=== PATIENT | male | born 1945 | race Caucasian/White ===

== ENCOUNTER 2018-07-30 09:59 | Observation (INO) | payer MEDICARE, SELFPAY ==
[2018-07-30] VITALS (9 sets, daily range): BP systolic 128–165; BP diastolic 67–100; PULSE 81–90; RESP 14–20; TEMP 36.7–37.6; O2SAT 92–97; BMI 28.2
--- NOTE | 2018-07-30 10:12 | CT_ITS ---
STUDY: CT ABDOMEN AND PELVIS WITH CONTRAST REASON FOR EXAM: Male, 72 years old. Bilateral back pain with history of metastatic lung cancer involving the bones RADIATION DOSAGE (If Supplied By Facility): CTDIvol = ( 15.21 ) mGy, DLP = ( 1265.13 ) mGycm TECHNIQUE: Transaxial images were obtained from the dome of the diaphragm to the symphysis pubis with oral contrast. 100 IV/Oral Isovue 300 was administered. Sagittal and coronal images were reconstructed. Individualized dose optimization techniques were used for this CT. COMPARISON: None. FINDINGS: Masslike consolidation in the right lower lobe with numerous noncalcified nodules throughout the visualized lungs. Small volume right pleural effusion. The visualized portions of the heart are within normal limits. There are multiple hypodense lesions throughout the liver with the largest measuring up to 3.4 cm and the right hepatic lobe on image 29. No intrahepatic bile duct dilation. Gallbladder is unremarkable. Normal spleen. Normal pancreas. Hypodense mass of the right adrenal gland measures 3 cm, worrisome for metastatic deposit with a smaller but also worrisome nodule of the left adrenal gland 1.4 cm. Normal right kidney. Normal left kidney. Normal visualized stomach. Normal small intestine. There are multiple colonic diverticula consistent with diverticulosis. The appendix is visualized and appears normal. There is diffuse atherosclerotic calcification of the abdominal aorta, without a demonstrated aneurysm. Normal inferior vena cava. Normal retroperitoneum. Normal urinary bladder. There is a left-sided inguinal hernia containing adipose tissue. There are degenerative changes of the right more than left hip. There is an ill-defined lytic lesion of the anterior right femoral head/neck on axial image 111, cyst or metastatic deposit. There are degenerative changes throughout the thoracolumbar spine. Expansile lytic lesion of the posterior right 11th rib is evident on image 40. No lumbar spine compression fracture seen. There is a lytic lesion involving T12 with indistinct posterior vertebral body cortical margin on sagittal image 83. CT/Abdomen/Pelvis WITH Contrast IMPRESSION: 1. Right lung base consolidative mass with multiple pulmonary nodules, multiple hepatic masses, bilateral adrenal gland nodules, right femoral head/neck lytic lesion, right posterior 11th rib lytic lesion, T12 lytic lesion (no compression deformity seen). Findings compatible with metastatic lung cancer with metastasis. The T12 lytic lesion would better be evaluated with MRI (with IV contrast) to evaluate for extent into the canal/neural compromise). Electronically Signed: Levy Llanos MD at 12:07 EDT , Service support ,
[2018-07-30 10:27] LABS: Absolute Lymphocyte Count 1.04 X10^3/ul (0.83-4.51); Basophil# 0.07 X10^3/uL; Basophil% 0.7 % (0-1); Eosinophil# 0.09 X10^3/uL; Eosinophils% 0.9 % (0-5); Hematocrit 45.1 % (40-54); Hemoglobin 14.9 g/dl (13.0-16.5); Lymphocyte # 1.04 X10^3/ul (4.0); Lymphocyte % 10.3 % (19-41); Mean Corpuscular Hgb 28.6 pg (27.0-32.0); Mean Corpuscular Volume 86.6 fL (80-94); Mean Platelet Vol. 10.4 fl (6.2-12.0); Monocyte# 0.88 X10^3/uL; Monocyte% 8.7 % (0-10); Neutrophil # 7.97 X10^3/uL (2.7-7.7); Neutrophil % 79.1 % (47-70); POSITIVE COUNT NO; POSITIVE DIFFERENTIAL NO; POSITIVE MORPHOLOGY NO; Platelet Count 282 K/mm3 (150-450); RBC Distribution Width CV 14.1 % (11.6-14.6); RBC Distribution Width SD 44.8 fl (35.1-43.9); Red Blood Count 5.21 M/mm3 (4.6-6.2); White Blood Count 10.1 K/mm3 (4.4-11.0)
[2018-07-30 10:57] LABS: AST(SGOT) 30 U/L (15-37); Alanine Aminotransfer ALT/SGPT 19 U/L (16-61); Albumin, Serum 3.8 g/dL (3.2-5.0); Alkaline Phosphatase 152 U/L (45-117); Anion Gap 10 (5-15); BUN 14 mg/dL (7-18); BUN/Creat Ratio 14.6 RATIO (10-20); Bilirubin, Direct 0.18 mg/dL (0.00-0.30); Calcium,Total 9.1 mg/dL (8.5-10.1); Chloride 106 mmol/L (98-107); Creatinine, Serum 0.96 mg/dL (0.70-1.30); EST Glomerular Filtration Rate 82 mL/min (>60); Est Glom Filt Rate - Afr Amer 99 mL/min (>60); Estimated Creatinine Clearance 67.51 ml/min; Glucose 100 mg/dL (74-106); Potassium 3.8 mmol/L (3.5-5.1); Protein, Total 7.8 g/dL (6.4-8.2); Sodium Level 143 mmol/L (136-145)
[2018-07-30] MEDS: Ondansetron 4 MG/2 ML Vial IV ×2 (11:09→12:59)
[2018-07-30] MEDS: HYDROmorphone 1 MG/ML Syringe 0.5 MG IV (11:09)
[2018-07-30] MEDS: 0.9% Normal Saline 1,000 ML 15 ML IV (11:09)
[2018-07-30] MEDS: Morphine 4 MG/ML Syringe IV ×3 (12:58→23:29)
--- NOTE | 2018-07-30 13:15 | ED.VISSUMM ---
- ER Visit Summary Date of Service: 07/30/18 Chief Complaint: Abdominal pain, back pain History of Present Illness: The patient is a 72 M with history of non-small cell lung cancer with mets. He is currently in hospice care. He had increased back and left lower quadrant abdominal pain over the past 2 days. He was seen at the hospice facility this morning. Abdomen was firm with tenderness in the left lower quadrant. There are concern for diverticulitis. His temperature was reportedly 101. He revoked his hospice privileges for today to coming to be seen for this. He states his last bowel movement was yesterday. He states if anything he is constipated. Physical Examination: Vital signs significant for blood pressure of 164/97, otherwise unremarkable. Patient sitting upright in bed no acute distress. He is nontoxic-appearing. Heart is regular rate and rhythm. Lung sounds are clear. Abdomen is soft with mild lower abdominal tenderness. No guarding or rebound. Hypoactive bowel sounds are present. Test Results: CBC chemistry studies normal. LFTs unremarkable. CT abdomen pelvis with contrast reveals right lung base mass with multiple hepatic masses. He has multiple lytic bony lesions including a T12 lytic lesion. There is evidence of colonic diverticulosis without diverticulitis. Emergency Department Course and Treatment: Patient received Dilaudid and Zofran here followed by a dose of morphine. At this time his pain is not well controlled. I suspect he may be having left lower quadrant abdominal pain as radicular symptoms from his T12 lesion. I spoke with the hospice physician and because he revoked his privileges he cannot go back to the inpatient center for 24 hours. I spoke with the hospitalist to admit for pain control. Treatment Plan: [] Disposition: Admit Impression: 1. Metastatic lung cancer 2. Intractable pain This note was generated with Carmine dictation software. It may contain incorrect words, spelling, and punctuation that were not noted in review of the chart prior to signing ED Disposition - Plan for ED Patient: Disposition: Acute Care Hospital [facility]
--- NOTE | 2018-07-30 14:15 | HP.PCM_ITS ---
Problem List (1) Hypothyroidism Status: Chronic (2) Metastatic lung cancer (metastasis from lung to other site) Status: Chronic History of Present Illness Date of Admission: 07/30/18 Chief Complaint: Intractable back pain. The patient is a 72 year old M who presents to the Emergency Room due to intractable back pain. He reports he had a coughing fit yesterday morning and had sudden onset severe pain across to his lower/mid back which wraps around to his left side and stomach. He is currently under hospice services and was transported to the inpatient unit for better pain control last night. He reports his pain was still not well controlled and hospice physician recommended evaluation for diverticulitis, abscess or other causes of increased pain. Patient reports he was diagnosed with metastatic lung cancer September 2017, he has not undergone any treatment for this. His other past medical history includes hypothyroidism and peripheral neuropathy. He currently rates his pain 6 out of 10. He reports morphine has been more effective than Dilaudid which she was getting prior. Past Medical History Past Medical History (Chronic Problems): Chronic Problems Hypothyroidism (Chronic) Metastatic lung cancer (metastasis from lung to other site) (Chronic) Allergies Penicillins Allergy (Verified 07/30/18 10:00) Unknown Sulfa (Sulfonamide Antibiotics) Allergy (Verified 07/30/18 10:00) Unknown Home Medications: Ambulatory Orders Medication Instructions Recorded Duloxetine HCl 60 mg PO DAILY 07/30/18 Levothyroxine [Synthroid] 1.5 tab PO MOWEFR 07/30/18 Levothyroxine [Synthroid] 125 mcg PO SUTUTHSA 07/30/18 Lorazepam [Ativan] 2 mg PO Q4H PRN 07/30/18 Propranolol HCl 10 mg PO TID PRN 07/30/18 Saw [place] Fruit [Saw [place]] 450 mg PO DAILY 07/30/18 Senna/Docusate Sodium [Senokot-S, 1 tablet PO BID 07/30/18 Leighann-Colace] Surgical History: no surgical history Psychiatric History: No pertinent psych hx Lives: Alone Smoking Status: Never smoker Alcohol: None Drugs: None - *Family History Maternal History Items: Heart Disease Paternal History Items: Heart Disease Review of Systems Constitutional: Denies: Chills, Fever, Weight Change HEENT: Denies: Head Aches, Sinus Congestion, Sinus Drainage Cardiovascular: Denies: Chest Pain, Palpitations Respiratory: Denies: Cough, Shortness of breath at rest, Sputum production Gastrointestinal: Denies: Abdominal Pain, Nausea, Vomiting Genitourinary: Denies: Dysuria Musculoskeletal: Reports: Back Pain Skin: Denies: Rash, Wounds Neurological: Denies: Numbness, Tingling, Focal weakness Psychiatric: Denies: Anxiety, Depression, Homicidal Ideations, Suicidal Ideations Hematologic/ Lymphatic: Denies: Easy Bruising, Easy Bleeding VTE Information - Inpt Only VTE Present on Admission: No VTE Mechan Device Prophylaxis: None VTE Pharm Prophylaxis ordered?: No Reason prophylaxis not ordered:: Hospice Care - Physical Exam General: Alert, Oriented x3, Cooperative HEENT: Atraumatic, PERRLA, EOMI, Normocephalic Neck: Supple, No JVD, Negative Carotid Bruits Lungs: Clear to auscultation, Normal air movement Cardiovascular: Regular rate, Regular Rhythm, Normal S1, Normal S2, No murmurs Abdomen: Bowel Sounds Present, Soft, Non Tender, Non-Distended Extremities: No clubbing, No cyanosis, No edema, Capillary Refill Less than 3 Seconds Skin: No rashes, No breakdown Musculoskeletal: No Tenderness to Palpation of Joints or Extremities Neurological: Cranial nerves II-XII grossly intact, Neuro grossly intact Psych/Mental Status: Normal Affect, Appropriate Vital Signs Temp Pulse Resp BP Pulse Ox 98.2 F 86 16 128/67 H 97 07/30/18 10:01 07/30/18 12:27 07/30/18 14:04 07/30/18 12:27 07/30/18 12:27 Oxygen Delivery Method Room Air Weight: 191 lb 2.252 oz Body Mass Index (BMI) 28.2 Laboratory Tests Past 24 Hrs 07/30/18 07/30/18 10:10 10:10 WBC 10.1 RBC 5.21 Hgb 14.9 Hct 45.1 MCV 86.6 MCH 28.6 MCHC 33.0 RDW 14.1 RDW Differential 44.8 H Plt Count 282 MPV 10.4 Immature Gran % (Auto) 0.300 Neut % (Auto) 79.1 H Lymph % (Auto) 10.3 L [place] % (Auto) 8.7 Eos % (Auto) 0.9 Baso % (Auto) 0.7 Absolute Neuts (auto) 8.0 H Absolute Lymphs (auto) 1.04 Total Counted Not Reportable Sodium 143 Potassium 3.8 Chloride 106 Carbon Dioxide 27.0 Anion Gap 10 BUN 14 Creatinine 0.96 Estim Creat Clear Calc 67.51 Est GFR (MDRD) Af Amer 99 Est GFR (MDRD) Non-Af 82 BUN/Creatinine Ratio 14.6 Glucose 100 Calcium 9.1 Total Bilirubin 0.80 Direct Bilirubin 0.18 AST 30 ALT 19 Alkaline Phosphatase 152 H Total Protein 7.8 Albumin 3.8 Globulin 4.0 Assessment/Plan 1. Intractable back pain secondary to metastatic lung cancer with metastasis to bone- CT of abdomen and pelvis on admission shows right lung base consolidative mass with multiple pulmonary nodules, multiple hepatic masses, bilateral adrenal gland nodules, right femoral head/neck lytic lesion, right posterior 11th rib lytic lesion, T12 lytic lesion. Findings compatible with metastatic lung cancer with metastasis. Initiate ms contin 15mg BID. PRN IV morphine for breakthrough pain. Initiate bowel regimen. 2. Peripheral neuropathy-continue Cymbalta regimen. 3. Hypothyroidism-continue home Synthroid regimen. DVT prophylaxis-defer given hospice status. Discharge planning: plan for DC back to inpatient hospice unit when pain better controlled. This patient was seen by JOBY Moran under the supervision of Dr. Richter.
[2018-07-30] MEDS: LORazepam 1 MG Tablet PO (16:45)
[2018-07-30] MEDS: Polyethylene Glycol 3350 17 GM PACKET PO (16:45)
[2018-07-30] MEDS: morphine SR 15 MG Tablet PO ×2 (16:45→23:39)
[2018-07-30 17:23] LABS: Bacteria 0 SEEN /hpf (None Seen); Mucous, Urine 0 SEEN /hpf (<or=2+); Squamous Epithelial Cells - UA 0 SEEN /hpf (0-5); White Blood Cells 0 SEEN /hpf (0-5)
[2018-07-30 17:27] LABS: Color, Urine Yellow (Yellow); Glucose, Dipstick Normal (Normal); Ketone-Dipstick 15 mg/dl (Negative); Leukocyte Esterase-Dipstick Negative /ul (Negative); Nitrite-Dipstick Negative (Negative); Occult Blood-Urine 10 /ul (Negative); Protein-Dipstick 15 mg/dl (Negative); Urine Bilirubin Dipstick Negative (Negative); Urine Clarity Clear (Clear); Urine Urobilinogen Normal (Normal)
[2018-07-30 17:49] LABS: Red Blood Cells-Urine 0-5 SEEN /hpf (0-5)
[2018-07-30] MEDS: 0.9% NaCl Peripheral Flush Adult/Peds IV ×2 (19:45→23:31)
--- NOTE | 2018-07-30 19:50 | NURSING ---
upon rounding in pt's room pt frustrated and angry about not receiving pain meds timely and asking to speak with a phosphatic fertilizer supervisor. notified APPRENTICESHIP TRAINING REPRESENTATIVE JOSE ROBERTO. medicated pt for pain.
[2018-07-30] MEDS: Senna/Docusate Sodium 1 Tablet 2 TABLET PO (21:57)
[2018-07-30] MEDS: DULoxetine Hcl 60 MG Capsule PO (21:57)
[2018-07-31] MEDS: 0.9% NaCl Peripheral Flush Adult/Peds IV ×3 (02:39→08:16)
[2018-07-31] MEDS: Morphine 4 MG/ML Syringe IV ×2 (02:39→05:27)
[2018-07-31 02:45] VITALS: BP 138/82; PULSE 89; RESP 18; TEMP 37.3; O2SAT 92
[2018-07-31] MEDS: Levothyroxine 125 MCG Tablet PO (05:30)
[2018-07-31 08:01] VITALS: BP 177/89; PULSE 104; RESP 20; TEMP 37.3; O2SAT 92
[2018-07-31] MEDS: Acetaminophen 500 MG Tablet 1000 MG PO (08:14)
[2018-07-31] MEDS: Morphine 4 MG/ML Syringe 8 MG IV (08:15)
--- NOTE | 2018-07-31 08:22 | NURSING ---
Pt very resistive to any changed with meds-- c/o uncontrolled pain at shift change. This RN notified Dr. yancey- new orders received. This rN attempted to give to pt- he became upset and states he doesn't want to be a guinea pig. Notified this RN that he will only take 4mg as had before- and tylenol. Pt states tylenol works better for him than dilaudid- extra strength tylenol given. Pt requesting ativan 2mg q4h as he takes at hospice- states he was receiving 3-4 times a day then. Pt also requesting propanolol hcl 10mg as he takes at hospice to help with tremors and elevated b/p/ hr. Notified pt that pain can cause elevated bp/ hr- pt continued to refuse extra dose. Pt notified of new order for atb- pt state he doesn't want an ATB. Asked if he would return to hospice today- pt notified that the doctor plans to return him today. Pt verbalized understanding.
[2018-07-31 09:06] LABS: Absolute Lymphocyte Count 1.46 X10^3/ul (0.83-4.51); Absolute Neutrophil Count 8.8 X10^3/uL (2.0-7.7); Basophil# 0.06 X10^3/uL; Basophil% 0.5 % (0-1); Eosinophil# 0.14 X10^3/uL; Eosinophils% 1.2 % (0-5); Hemoglobin 14.2 g/dl (13.0-16.5); Lymphocyte # 1.46 X10^3/ul (4.0); Lymphocyte % 12.4 % (19-41); Mean Corp Hgb Conc 32.3 g/gl (32-36); Mean Corpuscular Hgb 28.7 pg (27.0-32.0); Mean Corpuscular Volume 88.9 fL (80-94); Mean Platelet Vol. 10.4 fl (6.2-12.0); Monocyte# 1.36 X10^3/uL; Monocyte% 11.5 % (0-10); Neutrophil # 8.77 X10^3/uL (2.7-7.7); Neutrophil % 74.1 % (47-70); Platelet Count 278 K/mm3 (150-450); RBC Distribution Width CV 14.2 % (11.6-14.6); RBC Distribution Width SD 45.8 fl (35.1-43.9); Red Blood Count 4.95 M/mm3 (4.6-6.2); White Blood Count 11.8 K/mm3 (4.4-11.0)
[2018-07-31 09:16] LABS: POSITIVE COUNT NO; POSITIVE DIFFERENTIAL NO; POSITIVE MORPHOLOGY NO
[2018-07-31 09:17] LABS: Erythrocyte Sedimentation Rate 14 mm/hr (0-20)
--- NOTE | 2018-07-31 10:41 | PCM.DC ---
- Discharge Diagnoses Current Active Problems: Current Active and Chronic Problems Hypothyroidism (Chronic) Metastatic lung cancer (metastasis from lung to other site) (Chronic) You will use the following diet at home:: No restrictions Your food should be the consistency of: Regular Your liquids should be the consistency of: Regular/Thin Discharge Activity: Return to Normal Activity, May not drive while taking narcotic pain medications. Allergies/Adverse Reactions: Allergies Penicillins Allergy (Verified 07/30/18 10:00) Unknown Sulfa (Sulfonamide Antibiotics) Allergy (Verified 07/30/18 10:00) Unknown Medications to take at Discharge Aspirin 325 mg PO TID PRN 07/30/18 Duloxetine HCl 60 mg PO DAILY 07/30/18 Levothyroxine [Synthroid] 1.5 tab PO MOWEFR 07/30/18 Levothyroxine [Synthroid] 125 mcg PO SUTUTHSA 07/30/18 Lorazepam [Ativan] 2 mg PO Q4H PRN 07/30/18 Propranolol HCl 10 mg PO TID PRN 07/30/18 Saw [place] Fruit [Saw [place]] 450 mg PO DAILY 07/30/18 Tylenol 500 mg PO TID PRN 07/30/18 Polyethylene Glycol 3350 [Miralax] 17 gm PO DAILY packet 07/31/18 Senna/Docusate Sodium [Senokot-S] 2 tablet PO BID tablet 07/31/18 Primary Care Physician: [facility] [Primary Care Provider] - Test Results: Test results from this visit will be discussed in further detail at your follow-up appointment, if applicable. Proposed Discharge Date: 07/31/18
--- NOTE | 2018-07-31 10:46 | DCINST_ITS ---
- Discharge Diagnoses Current Active Problems: Current Active and Chronic Problems Hypothyroidism (Chronic) Metastatic lung cancer (metastasis from lung to other site) (Chronic) You will use the following diet at home:: No restrictions Your food should be the consistency of: Regular Your liquids should be the consistency of: Regular/Thin Discharge Activity: Return to Normal Activity, May not drive while taking narcotic pain medications. Allergies/Adverse Reactions: Allergies Penicillins Allergy (Verified 07/30/18 10:00) Unknown Sulfa (Sulfonamide Antibiotics) Allergy (Verified 07/30/18 10:00) Unknown Medications to take at Discharge Aspirin 325 mg PO TID PRN 07/30/18 Duloxetine HCl 60 mg PO DAILY 07/30/18 Levothyroxine [Synthroid] 1.5 tab PO MOWEFR 07/30/18 Levothyroxine [Synthroid] 125 mcg PO SUTUTHSA 07/30/18 Lorazepam [Ativan] 2 mg PO Q4H PRN 07/30/18 Propranolol HCl 10 mg PO TID PRN 07/30/18 Saw [place] Fruit [Saw [place]] 450 mg PO DAILY 07/30/18 Tylenol 500 mg PO TID PRN 07/30/18 Polyethylene Glycol 3350 [Miralax] 17 gm PO DAILY packet 07/31/18 Senna/Docusate Sodium [Senokot-S] 2 tablet PO BID tablet 07/31/18 Primary Care Physician: [facility] [Primary Care Provider] - Test Results: Test results from this visit will be discussed in further detail at your follow- up appointment, if applicable. Proposed Discharge Date: 07/31/18
[2018-07-31] MEDS: Polyethylene Glycol 3350 17 GM PACKET PO (10:52)
[2018-07-31] MEDS: Senna/Docusate Sodium 1 Tablet 2 TABLET PO (10:52)
[2018-07-31] MEDS: LORazepam 1 MG Tablet PO (10:52)
--- NOTE | 2018-07-31 11:31 | DS.PCM_ITS ---
Discharge Date and Diagnosis Date of Admission: 07/30/18 Date of Discharge: 07/31/18 - Primary Discharge Diagnosis Active and Suspected Problems 1. Intractable back pain secondary to metastatic lung cancer with metastasis to bone 2. Peripheral neuropathy 3. Hypothyroidism - Secondary Discharge Diagnosis Chronic Problems Chronic pain syndrome (Chronic) Hypothyroidism (Chronic) Metastatic lung cancer (metastasis from lung to other site) (Chronic) Hospital Course and Treatment Imaging Results: Diagnostic Data Abdomen/Pelvis CT 07/30/18 10:12 IMPRESSION: 1. Right lung base consolidative mass with multiple pulmonary nodules, multiple hepatic masses, bilateral adrenal gland nodules, right femoral head/neck lytic lesion, right posterior 11th rib lytic lesion, T12 lytic lesion (no compression deformity seen). Findings compatible with metastatic lung cancer with metastasis. The T12 lytic lesion would better be evaluated with MRI (with IV contrast) to evaluate for extent into the canal/neural compromise). Electronically Signed: Levy Llanos MD at 12:07 EDT , Service support , Operations: None Procedures: None Summary of Care Provided: The patient is a 72 year old M admitted 07/30/2018 due to intractable back pain. 1. Intractable back pain secondary to metastatic lung cancer with metastasis to bone- CT of abdomen and pelvis on admission shows right lung base consolidative mass with multiple pulmonary nodules, multiple hepatic masses, bilateral adrenal gland nodules, right femoral head/neck lytic lesion, right posterior 11th rib lytic lesion, T12 lytic lesion. Findings compatible with metastatic lung cancer with metastasis. Patient requests that hospice further manage his pain and patient will be discharged back to inpatient hospice facility. Recommend aggressive bowel regimen as ordered at discharge. 2. Peripheral neuropathy-continue Cymbalta regimen. 3. Hypothyroidism-continue home Synthroid regimen. General: Alert, Oriented x3, Cooperative HEENT: Atraumatic, PERRLA, EOMI, Normocephalic Neck: Supple, No JVD, Negative Carotid Bruits Lungs: Clear to auscultation, Normal air movement Cardiovascular: Regular rate, Regular Rhythm, Normal S1, Normal S2, No murmurs Abdomen: Bowel Sounds Present, Soft, Non Tender, Non-Distended Extremities: No clubbing, No cyanosis, No edema, Capillary Refill Less than 3 Seconds Skin: No rashes, No breakdown Musculoskeletal: No Tenderness to Palpation of Joints or Extremities Neurological: Cranial nerves II-XII grossly intact, Neuro grossly intact Psych/Mental Status: Normal Affect, Appropriate Patient seen and examined prior to discharge. Physical assessment as noted above. Patient is stable for discharge to hospice medical facility for further pain management. This patient was seen by JOBY Moran under the supervision of Dr. Ricther. - Physical Exam Vital Signs Temp Pulse Resp BP Pulse Ox 99.1 F 104 H 20 H 177/89 H 92 07/31/18 08:01 07/31/18 08:01 07/31/18 08:01 07/31/18 08:01 07/31/18 08:01 Oxygen Delivery Method Room Air Weight: 191 lb 2.252 oz Body Mass Index (BMI) 28.2 Intake and Output for Last 24 Hours 07/29/18 07/30/18 07/31/18 23:59 23:59 23:59 Intake Total 240 / 240 500 / 500 Output Total 100 / 100 Balance 140 / 140 500 / 500 Laboratory Tests Past 24 Hrs 07/30/18 07/31/18 07/31/18 17:00 08:45 08:45 WBC 11.8 H RBC 4.95 Hgb 14.2 Hct 44.0 MCV 88.9 MCH 28.7 MCHC 32.3 RDW 14.2 RDW Differential 45.8 H Plt Count 278 MPV 10.4 Immature Gran % (Auto) 0.300 Neut % (Auto) 74.1 H Lymph % (Auto) 12.4 L [place] % (Auto) 11.5 H Eos % (Auto) 1.2 Baso % (Auto) 0.5 Absolute Neuts (auto) 8.8 H Absolute Lymphs (auto) 1.46 Total Counted Not Reportable ESR 14 C-React Prot Ext Range 109.00 H Urine Color Yellow Urine Clarity Clear Urine pH 5.0 Ur Specific [place] 1.010 Urine Protein 15 H Urine Glucose (UA) Normal Urine Ketones 15 H Urine Occult Blood 10 H Urine Nitrite Negative Urine Bilirubin Negative Urine Urobilinogen Normal Ur Leukocyte Esterase Negative Urine RBC 0-5 SEEN Urine WBC 0 SEEN Ur Squamous Epith Cells 0 SEEN Urine Bacteria 0 SEEN Urine Mucus 0 SEEN Discharge Diet: No Restrictions Discharge Activity: Return to Normal Activity, May not drive while taking narcotic pain medications. Home Medications: Medications to take at Discharge Aspirin 325 mg PO TID PRN 07/30/18 Duloxetine HCl 60 mg PO DAILY 07/30/18 Levothyroxine [Synthroid] 1.5 tab PO MOWEFR 07/30/18 Levothyroxine [Synthroid] 125 mcg PO SUTUTHSA 07/30/18 Lorazepam [Ativan] 2 mg PO Q4H PRN 07/30/18 Propranolol HCl 10 mg PO TID PRN 07/30/18 Saw [place] Fruit [Saw [place]] 450 mg PO DAILY 07/30/18 Tylenol 500 mg PO TID PRN 07/30/18 Polyethylene Glycol 3350 [Miralax] 17 gm PO DAILY packet 07/31/18 Senna/Docusate Sodium [Senokot-S] 2 tablet PO BID tablet 07/31/18 Primary Care Physician: [facility] [Primary Care Provider] - Disposition: Hospice Medical Facility Minutes spent on discharge:: 35 Patient Condition:: Fair Medical Necessity - Tobacco Use Smoking Status: Never smoker Meaningful Use Info Meaningful Use Diagnoses (Choose all that apply): None applicable
--- NOTE | 2018-07-31 11:37 | NURSING ---
report called to Dora at Hospice at this time. Dora requested for IV's to remain intact. 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
== END 2018-07-31 12:08 | disposition hospice, inpatient (51) ==
LOC: ED 10:51 → MS3 13:54
PROVIDERS: Admitting Provider Internal Medicine; Emergency Provider Emergency Medicine; Referring Provider Internal Medicine; Visit Provider Internal Medicine
DX: C34.90 Malignant neoplasm of unspecified part of unspecified bronchus or lung (principal); G89.3 Neoplasm related pain (acute) (chronic); C79.51 Secondary malignant neoplasm of bone; G62.9 Polyneuropathy, unspecified; E03.9 Hypothyroidism, unspecified; Z79.899 Other long term (current) drug therapy; Z79.82 Long term (current) use of aspirin; G89.4 Chronic pain syndrome; C78.7 Secondary malignant neoplasm of liver and intrahepatic bile duct; C79.72 Secondary malignant neoplasm of left adrenal gland; C79.71 Secondary malignant neoplasm of right adrenal gland
CPT/HCPCS: 74177; 80048; 80076; 81001; 85025; 85652; 86140; 96374; 96375; 96376; 99218; 99285; J7030; Q9967; A4216; G0378; J2405